=== PATIENT | male | born 1995 | race Hispanic/Latino ===

== ENCOUNTER 2022-11-25 08:13 | Emergency (ER) | payer OTHER ==
[~2022-11-25] VITALS: Ht 172.7 cm; Wt 64.5 kg
[2022-11-25] MEDS ORDERED: ASPE4PAD TOP (10:16)
[2022-11-25] MEDS ORDERED: METH-1165 PO (10:16)
[2022-11-25 10:20] VITALS: BP 114/76; TEMP 98.6; O2SAT 99
== END 2022-11-25 10:25 | disposition home or self-care (01) ==
LOC: M ED 08:13
DX: S73.102A Unspecified sprain of left hip, initial encounter (principal); M54.50 Low back pain, unspecified; V49.40XA Driver injured in collision with unspecified motor vehicles in traffic accident, initial encounter; Y92.410 Unspecified street and highway as the place of occurrence of the external cause

== ENCOUNTER 2023-06-19 16:22 | Emergency (ER) | payer OTHER ==
[~2023-06-19] VITALS: Ht 172.7 cm; Wt 62.4 kg
[~2023-06-19 16:22] MED LIST: ASPE4PAD TOP; METH-1165 PO
[2023-06-19 16:24] VITALS: BP 119/83; TEMP 98.2; O2SAT 95
== END 2023-06-19 17:31 | disposition home or self-care (01) ==
LOC: M ED 16:22
DX: L29.9 Pruritus, unspecified (principal); W57.XXXA Bitten or stung by nonvenomous insect and other nonvenomous arthropods, initial encounter; Y92.9 Unspecified place or not applicable; Y93.9 Activity, unspecified; Y99.9 Unspecified external cause status; Z88.6 Allergy status to analgesic agent

== ENCOUNTER 2023-11-18 09:16 | Emergency (ER) | payer OTHER ==
[~2023-11-18] VITALS: Ht 172.7 cm; Wt 60.3 kg
[2023-11-18] MEDS ORDERED: ACET1TAB55 PO (09:36)
[2023-11-18 13:29] VITALS: BP 127/81; TEMP 97.8; O2SAT 98
== END 2023-11-18 13:35 | disposition home or self-care (01) ==
LOC: M ED 09:16
DX: S83.91XA Sprain of unspecified site of right knee, initial encounter (principal); Y04.2XXA Assault by strike against or bumped into by another person, initial encounter; Y92.139 Unspecified place military base as the place of occurrence of the external cause; Y93.89 Activity, other specified; Y99.8 Other external cause status; Z88.6 Allergy status to analgesic agent